=== PATIENT | female | born 1990 | race Two or more races ===

== ENCOUNTER 2019-09-26 09:53 | Emergency (ER) | payer MEDICAID ==
[2019-09-26 10:50] LABS: ABSOLUTE EOSINOPHILS # (AUTO) 0.1 10^3/uL (0.0-0.6); ABSOLUTE LYMPHOCYTES (AUTO) 1.6 10^3/uL (0.5-4.7); ABSOLUTE MONOCYTES (AUTO) 0.4 10^3/uL (0.1-1.4); ABSOLUTE NEUT (AUTO) 3.7 10^3/uL (1.7-8.2); BASOPHILS % (AUTO) 0.7 % (0-2); EOSINOPHILS % (AUTO) 1.3 % (0-6); HEMATOCRIT 41.9 % (36.0-47.0); HEMOGLOBIN 14.7 g/dL (12.0-15.5); LYMPHOCYTES % (AUTO) 27.2 % (13-45); MEAN CORPUSCULAR HGB CONC 35.1 g/dL (32.0-36.0); MEAN CORPUSCULAR VOLUME 88 fl (80-97); MONOCYTES % (AUTO) 6.2 % (3-13); PLATELET COUNT 189 10^3/uL (150-450); RED BLOOD COUNT 4.74 10^6/uL (3.72-5.28); RED CELL DISTRIBUTION WIDTH 11.9 % (11.5-14.0); SEGMENTED NEUTROPHILS % (AUTO) 64.6 % (42-78); TOTAL CELLS COUNTED % (AUTO) 100 %; WHITE BLOOD COUNT 5.8 10^3/uL (4.0-10.5)
[2019-09-26 10:53] LABS: APPEARANCE,URINE SLIGHTLY-CLOUDY; BILIRUBIN,URINE NEGATIVE (NEGATIVE); COLOR,URINE YELLOW; GLUCOSE, URINE NEGATIVE (NEGATIVE); KETONES,URINE NEGATIVE (NEGATIVE); LEUKOCYTE ESTERASE,URINE NEGATIVE (NEGATIVE); NITRITE,URINE NEGATIVE (NEGATIVE); PROTEIN,URINE NEGATIVE (NEGATIVE); URINE SPECIFIC GRAVITY 1.016
[2019-09-26 11:11] LABS: ALBUMIN 4.7 g/dL (3.5-5.0); ALKALINE PHOSPHATASE 91 U/L (38-126); ANION GAP 12 (5-19); ASPARTATE AMINO TRANSFERASE 20 U/L (14-36); BILIRUBIN,DIRECT 0.1 mg/dL (0.0-0.4); BILIRUBIN,TOTAL 0.6 mg/dL (0.2-1.3); BLOOD UREA NITROGEN 9 mg/dL (7-20); CALCIUM 9.6 mg/dL (8.4-10.2); CARBON DIOXIDE 28 mmol/L (22-30); CHLORIDE 100 mmol/L (98-107); GLUCOSE 92 mg/dL (75-110); POTASSIUM 3.8 mmol/L (3.6-5.0)
--- NOTE | 2019-09-26 11:43 | ER Document Report ---
ED Medical Screen (RME) - General Chief Complaint: Flank Pain Stated Complaint: GROIN PAIN Time Seen by Provider: 09/26/19 11:25 Mode of Arrival: Ambulatory Information source: Patient Notes: Otherwise healthy 29-year-old female patient presents emergency department chief complaint of right-sided flank pain that has now radiated into her groin. Patient denies history of kidney stones. Patient denies any nausea, vomiting, diarrhea. She does report some dysuria this morning. Exam: No CVA tenderness bilaterally. I have greeted and performed a rapid initial assessment of this patient. A comprehensive ED assessment and evaluation of the patient, analysis of test results and completion of the medical decision making process will be conducted by additional ED providers. I have specifically instructed the patient or family members with the patient to immediately return to any nursing staff should anything change in the patient's condition or with their chief complaint. This medical record was dictated with voice recognizing software. There may be grammatical, syntax errors that are unintended. TRAVEL OUTSIDE OF THE [place] IN LAST 30 DAYS: No - Related Data Allergies/Adverse Reactions: No Known Allergies Allergy (Verified 09/26/19 10:01) Past Medical History - Social History Chew tobacco use (# tins/day): No Frequency of alcohol use: Occasional Drug Abuse: None Pulmonary Medical History: Reports: Hx Asthma Physical Exam - Vital signs Vitals: Temp Pulse Resp BP Pulse Ox 97.9 F 85 14 99/72 L 98 09/26/19 09:57 09/26/19 09:57 09/26/19 09:57 09/26/19 09:57 09/26/19 09:57 Course - Vital Signs Vital signs: Temp Pulse Resp BP Pulse Ox 97.9 F 85 14 99/72 L 98 09/26/19 10:01 09/26/19 09:57 09/26/19 10:01 09/26/19 09:57 09/26/19 10:01 - Laboratory Result Diagrams: 09/26/19 10:26 09/26/19 10:26 Laboratory results interpreted by me: 09/26/19 09/26/19 10:05 10:26 Creatinine 0.51 L Urine Blood SMALL H Urine Urobilinogen 2.0 H
[2019-09-26] MEDS ORDERED: KETOROLAC TROMETHAMINE 60 MG/2 ML SDV IM ONE (11:44)
[2019-09-26] MEDS ORDERED: ONDANSETRON 4 MG TAB.RAPDIS PO ONE (11:44)
--- NOTE | 2019-09-26 12:31 | ER Document Report ---
ED General - General Chief Complaint: Flank Pain Stated Complaint: GROIN PAIN Time Seen by Provider: 09/26/19 11:25 [facility] [[facility] - Follow up in 1 week Mode of Arrival: Ambulatory Notes: 29-year-old female presents for right flank pain that is been ongoing for the past few days that radiates into her right groin/right pelvic area. Patient s tates she has been having some urinary urgency however denies any dysuria or hematuria. Patient states she just finished her cycle. Patient denies any associated fever/chills, nausea/vomiting, abdominal pain, chest pain, dyspnea, vaginal discharge/bleeding. Patient does state that her stools have been more runny. Patient states she had similar pain when she was diagnosed with a right ovarian cyst which was removed. Patient denies any history of kidney stones or kidney infection. TRAVEL OUTSIDE OF THE [place] IN LAST 30 DAYS: No - Related Data Allergies/Adverse Reactions: No Known Allergies Allergy (Verified 09/26/19 10:01) Past Medical History - General Information source: Patient - Social History Smoking Status: Never Smoker Chew tobacco use (# tins/day): No Frequency of alcohol use: Occasional Drug Abuse: None Family History: None Patient has suicidal ideation: No Patient has homicidal ideation: No Pulmonary Medical History: Reports: Hx Asthma Review of Systems - Review of Systems Notes: Constitutional: Negative for fever. HENT: Negative for sore throat. Eyes: Negative for visual changes. Cardiovascular: Negative for chest pain. Respiratory: Negative for shortness of breath. Gastrointestinal: Positive for right flank pain. Negative for abdominal pain, vomiting or diarrhea. Genitourinary: Positive for urgency and right pelvic pain. Negative for dysuria. Musculoskeletal: Negative for back pain. Skin: Negative for rash. Neurological: Negative for headaches, weakness or numbness. 10 point ROS negative except as marked above and in HPI. Physical Exam - Vital signs Vitals: Temp Pulse Resp BP Pulse Ox 97.9 F 85 14 99/72 L 98 09/26/19 09:57 09/26/19 09:57 09/26/19 09:57 09/26/19 09:57 09/26/19 09:57 - Notes Notes: GENERAL: Well-appearing, well-nourished and in no acute distress. HEAD: Atraumatic, normocephalic. EYES: Extraocular movements intact, sclera anicteric, conjunctiva are normal. NECK: Normal range of motion, supple without lymphadenopathy or JVD. LUNGS: Breath sounds clear to auscultation bilaterally and equal. No wheezes rales or rhonchi. HEART: Regular rate and rhythm without murmurs, rubs or gallops. ABDOMEN: Soft, nontender. No guarding, no rebound. No masses appreciated. No CVA tenderness. : Tenderness to right pelvic area. Mild right adnexal tenderness. No cervical motion or left adnexal tenderness. Very minimal white vaginal discharge noted. EXTREMITIES: Normal range of motion, no pitting or edema. No clubbing or cyanosis. NEUROLOGICAL: Cranial nerves II through XII grossly intact. Normal speech, normal gait. PSYCH: Normal mood, normal affect. SKIN: Warm, Dry, normal turgor, no rashes or lesions noted. Course - Re-evaluation Re-evalutation: 09/26/19 nontoxic, well-appearing 29-year-old female presents with right flank pain that goes into her groin/right pelvic area. Associated urgency. Patient states similar pain when she was diagnosed with an ovarian cyst which had to be removed. Patient's abdomen is soft nontender. No CVA tenderness. Patient's lab work was unremarkable with no leukocytosis. Patient is afebrile. UA shows small amount of blood with 2 white blood cells and 3 red blood cells. Pelvic ultrasound and pelvic exam set up ordered. Toradol was given with Zofran. 09/26/19 13:06 pelvic done. Patient found to have very mild white vaginal discharge and mild right adnexal tenderness. No concern for PID as patient did not have cervical motion tenderness or increased tenderness to bilateral adnexa. Awaiting ultrasound results. 09/26/19 14:21 US shows right ovarian cyst at 2 cm. Discussed results with patient. Patient also given report of ultrasound. Patient given referral to [facility] for further work-up. Strict return precautions given. Patient given prescription for ibuprofen 800 mg 3 times daily. Patient voices understanding and agrees with plan of care. - Vital Signs Vital signs: Temp Pulse Resp BP Pulse Ox 97.9 F 71 16 102/55 L 98 09/26/19 12:56 09/26/19 12:56 09/26/19 12:56 09/26/19 12:56 09/26/19 12:56 - Laboratory Result Diagrams: 09/26/19 10:26 09/26/19 10:26 Laboratory results interpreted by me: 09/26/19 09/26/19 10:05 10:26 Creatinine 0.51 L Urine Blood SMALL H Urine Urobilinogen 2.0 H Discharge - Discharge Clinical Impression: Right ovarian cyst Condition: Stable Disposition: HOME, SELF-CARE Instructions: Ovarian Cyst ([facility]) Additional Instructions: Your ultrasound showed a right ovarian cyst. Please take medications as prescribed. Please follow-up with [facility] listed in 1 to 2 weeks. Return to ER for any worsening symptoms, including worsening pain, fever, vaginal bleeding/discharge, burning with urination, nausea/vomiting, abdominal pain or any other symptoms that are concerning to you. Prescriptions: Ibuprofen [Motrin 800 mg Tablet] 800 mg PO Q8H PRN #30 tab PRN Reason: Forms: Return to Work Referrals: [facility] [Provider Group] - Follow up in 1 week
[2019-09-26 13:16] LABS: T.VAGINALIS (WET MOUNT) NO TRICHOMONAS SEEN; YEAST (WET MOUNT) NO YEAST SEEN
[2019-09-26 13:17] LABS: BACTERIA (WET MOUNT) 3+ BACTERIA SEEN; EPITHELIALS (WET MOUNT) 3+ EPITHELIALS SEEN; WBCS (WET MOUNT) FEW WBCS SEEN
--- NOTE | 2019-09-26 13:31 | RADIOLOGY REPORT (SQ) ---
EXAM DESCRIPTION: U/S NON OB PEL TV W/DOPPLER COMPLETED DATE/TIME: 09/26/2019 1:02 pm REASON FOR STUDY: right pelvic pain, hx ovarian cyst COMPARISON: None. TECHNIQUE: Dynamic and static grayscale images acquired of the pelvis via transvaginal approach and recorded on PACS. Additional selected color Doppler and spectral images recorded. LIMITATIONS: None. FINDINGS: UTERUS: Contour normal. No mass. ENDOMETRIAL STRIPE: IUD in place. CERVIX: No nabothian cysts. RIGHT OVARY AND DOPPLER: Normal vascular flow. Normal size. 2.3 cm simple ovarian cysts. LEFT OVARY AND DOPPLER: Normal size. No worrisome masses. Normal arterial vascular flow without evide nce for torsion. FREE FLUID: None noted. OTHER: No other significant finding. MEASUREMENTS: UTERUS: 9.5 cm. ENDOMETRIAL STRIPE: 5 mm. RIGHT OVARY: 3.9 cm. LEFT OVARY: 2.7 cm. IMPRESSION: 2 cm right ovarian cyst. IUD in expected location. COMMENT: Followup of asymptomatic benign ovarian cysts detected by ultrasound in PREMENOPAUSAL quita ents Simple cyst: *? 5 cm: no followup *Note: If cyst is clinically symptomatic or otherwise concerning, other followup may be warranted. Based on recommendations of the Society for Radiologists in Ultrasound Consensus Conference Statement 2010 on management of asymptomatic ovarian and other adnexal cysts imaged at ultrasound. TECHNICAL DOCUMENTATION: JOB ID: [id number] [employer]- All Rights Reserved Rev-02/21 Reading location - IP/workstation name: [email or web address]
[2019-09-26 14:46] LABS: CHLAM PCR NOT DETECTED (NOT DETECT)
[2019-09-26 15:21] VITALS: BP 98/61
== END 2019-09-26 15:21 | disposition home or self-care (01) ==
LOC: ER 09:53
DX: N83.201 Unspecified ovarian cyst, right side (principal); R10.9 Unspecified abdominal pain; R10.2 Pelvic and perineal pain
CPT/HCPCS: 99284; 96372; 36415; 87210; 83690; 84703; 85025; 80053; 81001; 87491; 87591; 76830; 93976; J1885; S0119